=== PATIENT | female | born 1995 | race Caucasian/White ===

== ENCOUNTER → 2020-09-30 | Outpatient (CLI) | payer OTHER ==
[2020-09-30 11:23] LABS: BASOPHIL % 0.2 % (0.0-0.2); EOSINOPHIL # 0.2 10^3/uL (0.0-0.2); EOSINOPHIL % 3.3 % (0.0-5.0); LYMPHOCYTES # 1.92 10^3/uL1 (1.0-4.8); LYMPHOCYTES % 34.7 % (24.0-44.0); MEAN CORP HGB 30.6 pg (26-34); MONOCYTES # 0.4 10^3/uL (0.3-0.8); MONOCYTES % 7.2 % (5.0-12.0); NEUTROPHILS % 54.6 % (41.0-85.0); RED CELL DISTRIBUTION WIDTH 12.2 % (11.5-14.5)
[2020-09-30 11:52] LABS: CARBON DIOXIDE 31.3 mmol/L (20.0-32)
== END | disposition home or self-care (01) ==
LOC: NPLAB 11:13
PROVIDERS: ATTEND Nurse Practitioner
DX: T67.6XXA Heat fatigue, transient, initial encounter (principal); R42 Dizziness and giddiness; X58.XXXA Exposure to other specified factors, initial encounter; Y93.89 Activity, other specified; Y92.89 Other specified places as the place of occurrence of the external cause; Y99.8 Other external cause status
CPT/HCPCS: 36415; 80053; 84439; 84443; 85025